=== PATIENT | male | born 1980 | race Asian ===

== ENCOUNTER 2018-01-02 16:16 | Emergency (ER) | payer OTHER ==
[2018-01-02] MEDS: predniSONE 20 MG TABLET PO (17:25)
[2018-01-02] MEDS: NAPROXEN 500 MG TABLET PO (17:27)
[2018-01-02] MEDS: HYDROcodone/APAP 5/325MG 1 TAB TABLET PO (17:27)
[2018-01-02] MEDS: diazePAM 5 MG TABLET PO (17:28)
== END 2018-01-02 17:32 | disposition home or self-care (01) ==
LOC: ER 16:16
DX: M54.6 Pain in thoracic spine (principal); M54.5 Low back pain; G89.29 Other chronic pain
CPT/HCPCS: 99284; J7512

== ENCOUNTER 2018-02-17 11:11 | Emergency (ER) | payer OTHER | END 2018-02-17 12:54 | disposition home or self-care (01) | LOC: ER 11:11 | DX: M54.9 Dorsalgia, unspecified (principal); L29.9 Pruritus, unspecified; F17.210 Nicotine dependence, cigarettes, uncomplicated | CPT/HCPCS: 99283 ==